=== PATIENT | male | born 1955 | race Caucasian/White ===

== ENCOUNTER 2019-12-31 15:56 | Emergency (ER) | payer OTHER, SELFPAY ==
[2019-12-31 16:20] VITALS: BP 109/57; PULSE 85; RESP 17; TEMP 36.6; O2SAT 98; BMI 21.1
--- NOTE | 2019-12-31 16:35 | EKG12_ITS ---
Test Reason : SYNCOPE Blood Pressure : / mmHG Vent. Rate : 079 BPM Atrial Rate : 079 BPM P-R Int : 132 ms QRS Dur : 084 ms QT Int : 368 ms P-R-T Axes : 065 002 065 degrees QTc Int : 421 ms Normal sinus rhythm Normal ECG Confirmed by LEOPOLDO PEREZ, DINA ([id number]), brands editor DASH ALTAMIRANO ([id number]) on 01/02/2020 10:59:05 AM Referred By: KRYSTYNA Confirmed By:DINA MINA MD
--- NOTE | 2019-12-31 17:05 | NURSING ---
NO OLD EKGS
--- NOTE | 2019-12-31 17:19 | CT_ITS ---
STUDY: CT BRAIN WITHOUT CONTRAST REASON FOR EXAM: Male, 64 years old. PASSED OUT TWICE TODAY, POSTERIOR HEADACHES INTERMITTENTLY RADIATION DOSAGE (If Supplied By Facility): CTDIvol = ( 44.99 ) mGy, DLP = ( 779.24 ) mGycm TECHNIQUE: Transaxial CT imaging of the brain was performed without administration of intravenous contrast material. Individualized dose optimization techniques were used for this CT. COMPARISON: No relevant priors. FINDINGS: Normal soft tissue structures. Normal calvarium. Normal size ventricles and extra-axial spaces for the patient''s age. Normal white matter tracts of the cerebral hemispheres. Normal basal ganglia and thalami. Normal brainstem. Normal cerebellum. There is no intracranial hemorrhage. There are no findings of an acute ischemic infarction. Normal visualized paranasal sinuses. CT/Brain/Head without Contrast IMPRESSION: Chronic involutional changes of the brain. No acute hemorrhage Electronically Signed: Choco Alejo MD at 17:59 EDT , Service support ,
[2019-12-31 17:34] VITALS: BP 100/66; BP 106/78; BP 108/88; PULSE 62; PULSE 87; PULSE 95; RESP 17; O2SAT 97
[2019-12-31] MEDS: 0.9% Normal Saline 1,000 ML 1000 ML IV (17:37)
--- NOTE | 2019-12-31 17:43 | RAD_ITS ---
STUDY: X-RAY CHEST REASON FOR EXAM: Male, 64 years old. TWO SYNCOPAL EPISODES TODAY, POSTERIOR HEADACHES, WEIGHT LOSS TECHNIQUE: 2 AP portable views COMPARISON: None. FINDINGS: EKG leads overlie the chest The lungs are hyperexpanded, with chronic interstitial changes but no superimposed acute pulmonary process. There is no demonstrated pleural abnormality. Normal size heart. Normal mediastinum and humberto. Normal visualized pulmonary arteries. Normal visualized aortic arch and descending thoracic aorta. There are diffuse degenerative changes of the visualized thoracic spine. Multiple old healed right rib fractures. There is no demonstrated abnormality of the visualized soft tissue structures of the upper abdomen. RAD/Chest 1 View (Portable) IMPRESSION: Degenerative changes, as described above. No demonstrated acute cardiopulmonary process. Electronically Signed: Choco Alejo MD at 18:02 EDT , Service support ,
[2019-12-31 18:23] LABS: Absolute Lymphocyte Count 0.96 X10^3/uL (0.83-4.51); Absolute Neutrophil Count 6.3 X10^3/uL (2.0-7.7); Basophil# 0.05 X10^3/uL; Basophil% 0.6 % (0-1); Eosinophil# 0.11 X10^3/uL; Eosinophils% 1.4 % (0-5); Hematocrit 48.1 % (40-54); Hemoglobin 16.2 g/dL (13.0-16.5); Lymphocyte # 0.96 X10^3/ul (4.0); Mean Corp Hgb Conc 33.7 g/dL (32-36); Mean Corpuscular Hgb 33.4 pg (27.0-32.0); Mean Corpuscular Volume 99.2 fL (80-94); Mean Platelet Vol. 10.8 fl (6.2-12.0); Monocyte# 0.59 X10^3/uL; Monocyte% 7.3 % (0-10); NRBC Flagged by Analyzer 0 % (0-5); Neutrophil # 6.29 X10^3/uL (2.7-7.7); Neutrophil % 78.3 % (47-70); Platelet Count 256 K/mm3 (150-450); RBC Distribution Width CV 14.1 % (11.6-14.6); RBC Distribution Width SD 51.3 fl (35.1-43.9); Red Blood Count 4.85 M/mm3 (4.6-6.2)
[2019-12-31 18:26] LABS: Bedside Glucose 106 mg/dL (70-110)
[2019-12-31 18:43] LABS: ALB/GLOB Ratio 1.1 RATIO (0.9-2.4); AST(SGOT) 17 U/L (15-37); Alanine Aminotransfer ALT/SGPT 23 U/L (16-61); Alkaline Phosphatase 63 U/L (45-117); Anion Gap 3 (5-15); BUN 7 mg/dL (7-18); BUN/Creat Ratio 7.4 RATIO (10-20); Calcium,Total 9.2 mg/dL (8.5-10.1); Chloride 105 mmol/L (98-107); Creatinine, Serum 0.94 mg/dL (0.70-1.30); EST Glomerular Filtration Rate 86 mL/min (>60); Est Glom Filt Rate - Afr Amer 104 mL/min (>60); Estimated Creatinine Clearance 76.99 ml/min; Globulin 3.6 g/dL (2.2-4.2); Glucose 79 mg/dL (74-106); Potassium 3.6 mmol/L (3.5-5.1); Protein, Total 7.6 g/dL (6.4-8.2); Sodium Level 139 mmol/L (136-145)
--- NOTE | 2019-12-31 18:51 | ED.DCSUM_ITS ---
- ER Visit Summary Date of Service: 12/31/19 Chief Complaint: Syncope History of Present Illness: The patient is a 64 M with no primary care physician. reports that the patient was sitting at a counter eating ice cream and cake. Patient reports that he felt his eyesight get blurry. reports that he had a blank stare lasted approximately minute and his head slumped over for approximately 2 minutes. He was not responding. This happened a second time shortly thereafter. There is no certain seizure activity during this. Patient did not bite his tongue. He was not incontinent of urine. He did not have a postictal episode. Patient denies any preceding chest pain, shortness of breath, or palpitations. He believes that this is because he did not eat breakfast or lunch. Patient does report that he had a mild headache after he passed out. States that that seems to have resolved. Physical Examination: Vitals: Stable. Afebrile. General: Well-nourished and well-developed. Head: Normocephalic atraumatic. Neck: Supple, no lymphadenopathy. No JVD. Nontender. Cardiovascular: Regular rate and rhythm. No murmurs. Respiratory: No respiratory distress. Clear to auscultation bilaterally. Abdominal: Soft, nontender, nondistended, normal bowel sounds. No guarding, rebound, or peritoneal signs. Back: Nontender. Extremities: Nontender, no edema. Skin: Normal color, no rash. Neurologic: Alert and oriented ?3. Cranial nerves II through XII are intact. Normal strength and sensation. Psych: Normal affect. Test Results: EKG is sinus at [address] changes. Troponin is negative. Chem-7 is normal. CBC shows segmented neutrophils 78 lymphocytes 12. TSH is normal. Chest x-ray shows chronic changes. CT brain shows chronic changes. Emergency Department Course and Treatment: Patient had negative orthostatic vital signs while here. He is resting comfortably. Treatment Plan: Based on all of the calculators for syncope the patient does not need to be admitted for this. He does not want to be admitted for this. He will be discharged instructions to follow-up with Dr. Mynor Lyn who he is seen in the distant past or Dr. Alvares who his sees for further evaluation and treatment. Return to the emergency department for any worsening symptoms. Disposition: To home in improved and stable condition. Impression: 1. Syncope, uncertain cause. This note was generated with [employer] dictation software. It may contain incorrect words, spelling, and punctuation that were not noted in review of the chart alicia or to signing ED Disposition - Plan for ED Patient: Disposition: Home or Assisted Living Instructions: ED Fainting Uncertain Cause Referrals: El Alvares MD [STAFF PHYSICIAN] - As soon as possible Mynor Lyn III, MD [Primary Care Provider] - As soon as possible
[2019-12-31 19:21] VITALS: BP 111/75; PULSE 75; RESP 16; O2SAT 98
== END 2019-12-31 19:22 | disposition home or self-care (01) ==
LOC: ED 17:47
PROVIDERS: Emergency Provider Emergency Medicine; PCP Family Medicine
DX: R55 Syncope and collapse (principal); F17.200 Nicotine dependence, unspecified, uncomplicated
CPT/HCPCS: 70450; 71045; 80053; 82962; 84443; 84484; 85025; 93005; 99285; J7030; A4216